=== PATIENT | male | born 1995 | race African-American/Black ===

== ENCOUNTER 2016-12-22 13:55 | Emergency (ER) | payer BC ==
[2016-12-22 13:59] VITALS: TEMP 98.2; BMI 33.9
--- NOTE | 2016-12-22 14:16 | PDOC ---
History of Present Illness - General History Source: Patient Exam Limitations: No Limitations - History of Present Illness Initial Comments: 12/22/16 14:23 The patient is a 21 year old female, with a significant past medical history of asthma, who presents to the emergency department with a left swollen testicle and pain for the last 3-4 days. He states that touching the area exacerbates the pain, as well as sitting down. He denies any radiation of the pain. He denies any kind of injury to the area. The patient denies chest pain, shortness of breath, headache and dizziness. Denies fever, chills, nausea, vomit, diarrhea and constipation. Denies dysuria, frequency, urgency and hematuria. Allergies: None Past surgical history: None reported Social history: Cigarette use (5 daily). No alcohol or drug use reported <Anurag Godwin - Last Filed: 12/22/16 16:20> <Julia Stephens - Last Filed: 12/22/16 16:35> - General Chief Complaint: Pain Stated Complaint: PAIN Time Seen by Provider: 12/22/16 14:09 Past History <Anurag Godwin - Last Filed: 12/22/16 16:20> - Past Medical History Asthma: Yes - Psycho/Social/Smoking Cessation Hx Anxiety: No Suicidal Ideation: No Smoking Status: Yes Smoking History: Current every day smoker Number of Cigarettes Smoked Daily: 5 Information on smoking cessation initiated: No Hx Alcohol Use: No Drug/Substance Use Hx: No Substance Use Type: None <Julia Stephens - Last Filed: 12/22/16 16:35> - Past Medical History Allergies/Adverse Reactions: Allergies Allergy/AdvReac Type Severity Reaction Status Date / Time No Known Allergies Allergy Verified 12/22/16 13:59 Home Medications: Ambulatory Orders Doxycycline Hyclate 100 mg PO BID #20 capsule 12/22/16 Review of Systems - Review of Systems Able to Perform ROS?: Yes Comments:: 12/22/16 14:23 GENERAL/CONSTITUTIONAL: No fever or chills. No weakness. HEAD, EYES, EARS, NOSE AND THROAT: No change in vision. No ear pain or discharge. No sore throat. CARDIOVASCULAR: No chest pain or shortness of breath RESPIRATORY: No cough, wheezing, or hemoptysis. GASTROINTESTINAL: No nausea, vomiting, diarrhea or constipation. GENITOURINARY: +Left swollen testicle with pain. No dysuria, frequency, or change in urination. MUSCULOSKELETAL: No joint or muscle swelling or pain. No neck or back pain. SKIN: No rash NEUROLOGIC: No headache, vertigo, loss of consciousness, or change in strength/ sensation. ENDOCRINE: No increased thirst. No abnormal weight change HEMATOLOGIC/LYMPHATIC: No anemia, easy bleeding, or history of blood clots. ALLERGIC/IMMUNOLOGIC: No hives or skin allergy. <Anurag Godwin - Last Filed: 12/22/16 16:20> *Physical Exam - Vital Signs Last Vital Signs Temp Pulse Resp BP Pulse Ox 98.2 F 68 20 134/85 97 12/22/16 13:56 12/22/16 13:56 12/22/16 13:56 12/22/16 13:56 12/22/16 13:56 <Anurag Godwin - Last Filed: 12/22/16 16:20> - Vital Signs Last Vital Signs Temp Pulse Resp BP Pulse Ox 98.2 F 68 20 134/85 97 12/22/16 13:56 12/22/16 13:56 12/22/16 13:56 12/22/16 13:56 12/22/16 13:56 - Physical Exam Comments: GENERAL: Awake, alert, and fully oriented, in no acute distress HEAD: No signs of trauma ABDOMEN: Soft, nontender, normoactive bowel sounds. No guarding, no rebound. No masses EXTREMITIES: Normal range of motion, no edema. No clubbing or cyanosis. No cords, erythema, or tenderness NEUROLOGICAL: Cranial nerves II through XII grossly intact. Normal speech, normal gait SKIN: Warm, Dry, normal turgor, no rashes or lesions noted. : Uncircumcised. L testicle with firm mass, +tenderness. No overlying skin changes. No erythema, no warmth. <Julai Stephens - Last Filed: 12/22/16 16:35> ED Treatment Course - RADIOLOGY Radiograph Interpretation: 12/22/16 16:20 Scrotal US Reviewed by: Dr. Lamonte Kerr Impression: Findings are noted involving the left epididymis suggestive of acute epididymitis. 1 cm left epididymal head cyst. Small to moderate bilateral hydroceles. No definite sonographic evidence of testicular pathology. <Anurag Godwin - Last Filed: 12/22/16 16:20> Medical Decision Making - Medical Decision Making 12/22/16 16:34 Sono results d/w patient. He states that he is sexually active with one long- term partner, usually (but not always) uses barrier protection. I will treat for epididymitis with rocephin, azithro, and 10 days of outpatient doxy. Urine GC/Chlam pending. <Julia Stephens - Last Filed: 12/22/16 16:35> *DC/Admit/Observation/Transfer - Attestations Scribe Attestion: 12/22/16 14:23 Documentation prepared by Anurag Godwin, acting as medical technicians for Julia Stephens MD <Anurag Godwin - Last Filed: 12/22/16 16:20> - Discharge Dispostion Admit: No <Julia Stephens - Last Filed: 12/22/16 16:35> Diagnosis at time of Disposition: Epididymitis - Discharge Dispostion Disposition: HOME Condition at time of disposition: Stable - Prescriptions Prescriptions: Doxycycline Hyclate 100 mg PO BID #20 capsule - Patient Instructions Printed Discharge Instructions: DI for Epididymitis
[2016-12-22 14:46] LABS: URINE APPEARANCE CLEAR; URINE BILIRUBIN NEGATIVE (NEGATIVE); URINE BLOOD NEGATIVE (NEGATIVE); URINE COLOR YELLOW; URINE GLUCOSE (UA) NEGATIVE (NEGATIVE); URINE KETONE NEGATIVE (NEGATIVE); URINE LEUK ESTERASE 1+ (NEGATIVE); URINE NITRITE NEGATIVE (NEGATIVE); URINE PROTEIN NEGATIVE (NEGATIVE); URINE UROBILINOGEN NEGATIVE E.U./dl (0.2-1.0)
[2016-12-22 14:53] LABS: URINE MUCUS RARE; URINE RBC 5 /hpf (0-3); URINE WBC 46 /hpf (3-5)
[2016-12-22] MEDS ORDERED: IBUPROFEN 600 MG TABLET (FP) PO ONE ×2 (15:06→15:58)
[2016-12-22] MEDS ORDERED: AZITHROMYCIN 1 GM PACKET PO ONE (15:10)
[2016-12-22] MEDS ORDERED: AZITHROMYCIN 250 MG TABLET (FP) ONE ×2 (15:58→16:07)
[2016-12-22] MEDS ORDERED: cefTRIAXone SODIUM 1 GM VIAL ONE (15:58)
[2016-12-22] MEDS ORDERED: LIDOCAINE HCL/PF 1% SDV 5ML VIAL ONE (15:59)
[2016-12-22 16:53] VITALS: BP 132/64; PULSE 60
--- NOTE | 2016-12-26 15:09 | PDOC ---
Patient Follow-up (Call Back) - Post ED Follow - Up Condition at time of discharge: Stable Disposition at time of original discharge: HOME Reason for Call Back: Abnwl. Microbiology (+chlamydia. pt was tx in ED after p/ w sxs Pt contacted and ifnormed of results, feling better. Will inform partner)
== END 2016-12-22 16:53 | disposition home or self-care (01) ==
LOC: JER 13:55
DX: N45.1 Epididymitis (principal); J45.909 Unspecified asthma, uncomplicated; F17.210 Nicotine dependence, cigarettes, uncomplicated
CPT/HCPCS: 36415; 76870-TC; 81003; 81015; 87491; 87591; 99282-25

== ENCOUNTER 2018-12-29 09:57 | Emergency (ER) | payer BC ==
[2018-12-29 10:04] VITALS: BP 118/65; PULSE 72; TEMP 98; BMI 38.0
[2018-12-29] MEDS ORDERED: KETOROLAC TROMETHAMINE 30 MG/1 ML VIAL IM ONE (11:05)
[2018-12-29] MEDS ORDERED: KETOROLAC TROMETHAMINE 30 MG/1 ML VIAL ONE (11:09)
--- NOTE | 2018-12-29 11:11 | PDOC ---
History of Present Illness - General Chief Complaint: Back Pain Stated Complaint: LOWER BACK PAIN Time Seen by Provider: 12/29/18 10:54 History Source: Patient Exam Limitations: No Limitations - History of Present Illness Initial Comments: 12/29/18 11:06 23 year old male with medical history of asthma and hernia repair presents for pain in right lower back since yesterday. Patient states he was bending over working on a car with his friend and upon standing up he had pain in lower back that is radiating down his right leg. States his right leg feels stiff. Denies injury or fall, no numbness or tingling in limbs and no bowel or bladder dysfunction. Took no medication so far. Occurred: reports: yesterday Severity: reports: moderate Pain Location: reports: back Method of Injury: Yes: other (bending over) Modifying Factors: improves with: immobilization Loss of Consciousness: no loss of consciousness Associated Symptoms (Fall): denies symptoms Past History - Travel Traveled outside of the country in the last 30 days: No Close contact w/someone who was outside of country & ill: No - Past Medical History Allergies/Adverse Reactions: Allergies Allergy/AdvReac Type Severity Reaction Status Date / Time No Known Allergies Allergy Verified 12/29/18 10:04 Home Medications: Ambulatory Orders Cyclobenzaprine HCl [Flexeril 10 mg] 10 mg PO HS PRN #6 tablet 12/29/18 Naproxen [Naprosyn] 500 mg PO BID #20 tablet 12/29/18 Asthma: Yes COPD: No Other medical history: obese - Suicide/Smoking/Psychosocial Hx Smoking Status: Yes Smoking History: Current every day smoker Number of Cigarettes Smoked Daily: 5 Information on smoking cessation initiated: Yes Hx Alcohol Use: No Drug/Substance Use Hx: No Substance Use Type: None Trauma Specific PMHX - Complaint Specific PMHX Arthritis: No Back Injury: No Neck Injury: No Hx Sacro Iliac Joint Dysfunction: No Review of Systems - Review of Systems Able to Perform ROS?: Yes Is the patient limited Nepalese proficient: No Constitutional: No: Chills, Fever HEENTM: No: Nose Pain, Nose Congestion, Throat Pain Respiratory: No: Shortness of Breath, Productive cough Cardiac (ROS): No: Chest Pain, Lightheadedness, Palpitations ABD/GI: No: Blood Streaked Bowels, Poor Appetite, Indigestion, Abdominal cramping : No: Incontinence, Pain Musculoskeletal: Yes: Back Pain Integumentary: No: Bruising, Change in Color, Erythema, Flushing Neurological: No: Numbness, Paresthesia, Weakness *Physical Exam - Vital Signs Last Vital Signs Temp Pulse Resp BP Pulse Ox 98 F 72 18 118/65 100 12/29/18 10:03 12/29/18 10:03 12/29/18 10:03 12/29/18 10:03 12/29/18 10:03 - Physical Exam General Appearance: Yes: Nourished, Appropriately Dressed. No: Apparent Distress HEENT: positive: Pharynx Normal. negative: Pharyngeal Erythema Neck: positive: Supple. negative: Lymphadenopathy (R), Lymphadenopathy (L) Respiratory/Chest: positive: Lungs Clear Cardiovascular: positive: Regular Rhythm, Regular Rate Musculoskeletal: positive: Normal Inspection, Other (able to straight leg lift, from, no cva or mid spinal tenderness). negative: CVA Tenderness, CVA Tenderness (R), CVA Tenderness (L), Vertebral Tenderness Extremity: positive: Normal Capillary Refill Neurologic: positive: dressage judge II-XII NML intact, Fully Oriented, Alert Medical Decision Making - Medical Decision Making 12/29/18 11:10 23 year old male with medical history of asthma and hernia repair presents for pain in right lower back since yesterday. Plan urine dip for blood analgesia 12/29/18 11:44 urine dip negative for blood Dx: musculoskeletal back pain rx: naproxen and flexeril qhs *DC/Admit/Observation/Transfer Diagnosis at time of Disposition: Musculoskeletal back pain - Discharge Dispostion Disposition: HOME Condition at time of disposition: Good Decision to Admit order: No - Prescriptions Prescriptions: Cyclobenzaprine HCl [Flexeril 10 mg] 10 mg PO HS PRN #6 tablet PRN Reason: Back Pain Naproxen [Naprosyn] 500 mg PO BID #20 tablet - Referrals - Patient Instructions Printed Discharge Instructions: Back Pain (Alternative Therapy) Additional Instructions: Activity as tolerated Please apply warm compress to area for 20 minutes 3 times daily Call primary physician for follow up appointment - Post Discharge Activity Forms/Work/School Notes: Back to Work
[2018-12-29 11:32] LABS: PH,URINE 5.5 (5.0-8.0); URINE APPEARANCE CLEAR; URINE BILIRUBIN NEGATIVE (NEGATIVE); URINE COLOR YELLOW; URINE GLUCOSE (UA) NEGATIVE (NEGATIVE); URINE KETONE TRACE (NEGATIVE); URINE LEUK ESTERASE NEGATIVE (NEGATIVE); URINE NITRITE NEGATIVE (NEGATIVE); URINE PROTEIN NEGATIVE (NEGATIVE)
== END 2018-12-29 11:52 | disposition home or self-care (01) ==
LOC: JERFT 09:57
PROC: 3E0233Z Introduction of Anti-inflammatory into Muscle, Percutaneous Approach (ICD-10-PCS; principal; 2018-12-29)
DX: M54.5 Low back pain (principal)
CPT/HCPCS: 81003; 99281-25